=== PATIENT | male | born 1985 | race Caucasian/White ===

== ENCOUNTER 2017-09-23 16:12 | Emergency (ER) | payer OTHER ==
[~2017-09-23] VITALS: Ht 180.3 cm; Wt 86.2 kg
[~2017-09-23 16:12] MED LIST: IBUPROFEN 800800 M1 PO; NAPROSYN500 MG PO; PHENERGAN 25 MG25 M1 PO
[2017-09-23] MEDS ORDERED: AUGMENTIN 500-1 EACH PO (16:36)
[2017-09-23 16:42] VITALS: BP 120/78
== END 2017-09-23 16:42 | disposition home or self-care (01) ==
LOC: M.ERS 16:12
DX: H00.011 Hordeolum externum right upper eyelid (principal); L03.213 Periorbital cellulitis